=== PATIENT | female | born 1970 | race Caucasian/White ===

== ENCOUNTER 2019-02-13 04:51 | Observation (INO) ==
[2019-02-13] MEDS ORDERED: KETOROLAC 30 MG/1 ML VIAL IV STA (05:27)
[2019-02-13] MEDS ORDERED: SODIUM CHLORIDE 0.9% 1,000 ML IV STA ×2 (05:27→07:37)
[2019-02-13] MEDS ORDERED: ONDANSETRON 4 MG/2 ML VIAL IV STA (05:27)
[2019-02-13] MEDS ORDERED: HYDROmorphone 2 MG/1 ML VIAL IV STA (05:27)
[2019-02-13] MEDS ORDERED: PANTOPRAZOLE 40 MG VIAL IV STA (05:27)
[2019-02-13 06:36] LABS: Basophils # 0.1 10*3/uL (0.0-0.2); Basophils % 0.5 % (0.0-0.8); Eosinophils # 0.2 10*3/uL (0.0-0.87); Hemoglobin 14.5 GM/DL (12.0-16.0); Immature Granulocytes % 0.6 %; Immature Granulocytes Absolute 0.09 #; Lymphocytes # 1.4 10*3/uL (1.4-4.0); Lymphocytes % 9.5 % (21.3-54.2); Mean Corpuscular HGB Conc 33.7 GM/DL (32-36); Mean Corpuscular Volume 87.8 FL (87-102); Mean Platelet Volume 9.2 FL (9.6-12.0); Monocytes % 5.9 % (1.7-12.7); Neutrophils % 82.5 % (38.7-73.9); Platelet Count 306 T/CUMM (130-400); Red Cell Distribution Width 13.2 % (9.3-17.3); White Blood Count 14.4 T/CUMM (4-12)
[2019-02-13 06:56] LABS: Alanine Aminotransferase 29 U/L (13-56); Albumin 3.6 G/DL (3.4-5.0); Alkaline Phosphatase 66 U/L (45-117); Amylase 27 U/L (25-115); Aspartate Amino Transferase 12 U/L (0-37); Blood Urea Nitrogen 18 MG/DL (7-18); Calcium 8.7 MG/DL (8.5-10.1); Estimated Glom Filtration Rate 87 ML/MIN; Glucose 129 MG/DL (74-106); Osmolality,Calculated 280.5 MOS/KG (273-304); Total Protein 7.1 G/DL (6.4-8.3); Troponin I < 0.015 NG/ML (0.00-0.045)
[2019-02-13 06:57] LABS: Apearance,Urine CLEAR (Clear); Bacteria,Urine Occasional /HPF (Few); Bilirubin,Urine Negative (Negative); Blood, Urine Small mg/dL (Negative); Glucose,Urine (UA) Negative (Negative); Ketones,Urine Negative (Negative); Nitrite,Urine Negative (Negative); Protein,Urine Negative; RBC,Urine 3 /HPF (0-4); Squamous Epithelial Cell,Urine Occasional /HPF (0-10); Urine Color Yellow (Yellow); Urine Specific Gravity > 1.060 (1.001-1.035); Urine Urobilinogen < 2.0 EU/DL (0.2-1.0); WBC,Urine 1 /HPF (0-6)
[2019-02-13] MEDS ORDERED: PROMETHAZINE 25 MG/1 ML VIAL IM STA (07:41)
[2019-02-13] MEDS ORDERED: ONDANSETRON 4 MG/2 ML VIAL IV PRN (08:17)
[2019-02-13] MEDS ORDERED: HYDROmorphone 2 MG/1 ML VIAL IV PRN (08:17)
[2019-02-13] MEDS ORDERED: ACETAMINOPHEN 325 MG TABLET PO PRN (08:17)
[2019-02-13] MEDS ORDERED: ENOXAPARIN 40 MG/0.4 ML SYRINGE SUBCUT SCH (08:30)
[2019-02-13] MEDS: SODIUM CHLORIDE 0.9% 1,000 ML IV SCH ×2 (12:24→20:25)
[2019-02-13] MEDS: ASPIRIN EC 81 MG TABLET PO SCH (15:10)
[2019-02-13] MEDS: METOPROLOL SUCCINATE XL 50 MG TABLET PO SCH (15:10)
[2019-02-13] MEDS: DOCUSATE SODIUM 100 MG CAPSULE PO SCH ×2 (15:11→20:35)
[2019-02-13] MEDS: POTASSIUM CHLORIDE 20 MEQ TABLET PO PRN ×3 (15:11→18:01)
[2019-02-13] MEDS: PANTOPRAZOLE 40 MG TABLET PO SCH (15:11)
[2019-02-14] MEDS: SODIUM CHLORIDE 0.9% 1,000 ML IV SCH (04:04)
[2019-02-14 06:03] LABS: Basophils # 0.1 10*3/uL (0.0-0.2); Basophils % 0.6 % (0.0-0.8); Eosinophils # 0.4 10*3/uL (0.0-0.87); Eosinophils % 4.5 % (0.00-10.9); Hematocrit 36.8 VOL% (35.7-47.0); Hemoglobin 12.1 GM/DL (12.0-16.0); Immature Granulocytes % 0.3 %; Immature Granulocytes Absolute 0.03 #; Lymphocytes # 4.7 10*3/uL (1.4-4.0); Lymphocytes % 54.3 % (21.3-54.2); Mean Corpuscular HGB Conc 32.9 GM/DL (32-36); Mean Corpuscular Volume 90.6 FL (87-102); Mean Platelet Volume 9.4 FL (9.6-12.0); Monocytes % 9.2 % (1.7-12.7); Neutrophils % 31.1 % (38.7-73.9); Platelet Count 259 T/CUMM (130-400); Red Blood Count 4.06 MC/CUMM (3.8-5.5); Red Cell Distribution Width 13.7 % (9.3-17.3); White Blood Count 8.7 T/CUMM (4-12)
[2019-02-14 06:27] LABS: Atypical Lymphocytes Few; Eosinophils 6 % (0-10); Lymphocytes 57 % (20-55); Segmented Neutrophils 32 % (50-85); Total Cells Counted 100
[2019-02-14 06:28] LABS: Hypochromasia 1+; Microcytosis Slight; Platelet Estimate Normal
[2019-02-14 06:32] LABS: Calcium 7.5 MG/DL (8.5-10.1); Osmolality,Calculated 280.1 MOS/KG (273-304)
[2019-02-14 08:28] VITALS: BP 132/79
[2019-02-14] MEDS: PANTOPRAZOLE 40 MG TABLET PO SCH (09:27)
[2019-02-14] MEDS: ASPIRIN EC 81 MG TABLET PO SCH (09:27)
[2019-02-14] MEDS: METOPROLOL SUCCINATE XL 50 MG TABLET PO SCH (09:27)
[2019-02-14] MEDS: DOCUSATE SODIUM 100 MG CAPSULE PO SCH (11:39)
== END 2019-02-14 11:37 | disposition home or self-care (01) ==
LOC: N.ED 04:51 → INTOOBSV 08:17 → N.EDINP 08:17 → N.2E 09:15
PROVIDERS: ADMIT Family Medicine; ATTEND Family Medicine